=== PATIENT | male | born 1975 | race Caucasian/White ===

== ENCOUNTER 2025-05-17 08:15 | Outpatient (REF) | payer OTHER, SELFPAY ==
--- OUTSIDE RECORDS SUMMARY | 2014-02-28 05:15 | XMS_ITS | Continuity of Care Document ---
Author Organization [facility] Address [address] [place] [phone] Phone Care Team Providers Care Transfusion Aide Name Role Phone Jolly Nair MS Unavailable Unavail able Allergies, Adverse Reactions, Alerts Substance Reaction Status Criticality No Known Drug Allergies Active No I nformation Procedures Procedure Date Offic/outpt E&m [facility] 4 Advance Directives Directive Yes / No Effective Date File Name No Information Encounters Encounter Description Practice Location Reason(s) For Visit Diagnoses Date Provider Providers Copied on Encounter [facility], [address] [place] [address], [id number], tel:[phone] PM[facility] [place] suture removal (chief complaint) Benign Fadi Skin Trunk Apoorvasc MS CARRIE Azevedo. [address] [place] [address], [id number], . tel:[phone] [facility], [address] [place] [address], [id number], tel:[phone] PM[facility] [place] surgical (chief complaint) Unc Behav Fadi Skin Apoorvasc MS CARRIE Azevedo. [address] [place] [address], [id number], [place]. tel:[phone] Offic/outpt E&m [facility] [address] [place] [address], [id number], tel:[phone] PMG [place] skin exam (chief complaint)m ole(s) (chief complaint) Unc Behav Fadi SkinBenign Fadi Skin TrunkAc Dermatitis-s olar Rad Nicole Azevedo. [address] [facility], [place], [place], [id number], [place]. tel:[phone] Family History Family Member Type Diagnosis Age At Onset No Information Payers Payer name Insurance type Covered republican ID Billie cruz(s) [employer] Non HMO Specialty CI [id number] Social History Type Description Quantity Date Captured Comments Sex Male Smoking Status No Information Chief Complaint And Reason For Visit From encounter dated '02/28/2014 09:15'. suture removal (chief complaint) Reason For Referral Reason For Referral No Information History Of Present Illness Encounter Date Complaint History Of Prese nt Illness No Information Functional Status Date Functional Assessmen t No Information Instructions Date Instruction Additional Infor mation Use sunscreen with > 30 SPF Assessments Type Assessment Date No Information Mental Status Date Cognitive Assessment Orientation - [place] ed to time, place, person, situation. Patient Care Teams Name Effective Dates (start - stop) Status Members No Information
--- NOTE | 2025-05-17 | EMG_ITS ---
Please see the attached neurophysiology report MTDD
--- OUTSIDE RECORDS SUMMARY | 2025-05-17 08:21 | XMS_ITS | Encounter Summary ---
Author Organization [facility] Address [address] [place] [phone] Phone Care Team Providers Care Shot Polisher Name Role Phone Rashi Miner MD Primary Care Provid er Encounter Details Date Type Department Care Team (Late st Contact Info) Description 01/26/2025 Procedure Pass [facility], Ct Scan - [facility] [address] [place] [address] Social History Tobacco Use Types Packs/Day Years Used Date Smoking Tobacco: Never Smokeless Tobacco: Never Alcohol Use Standard Drinks/Week Comments Not Currently 0 (1 standard drink = 0.6 oz pur e alcohol) Occ Education Answer Date Recorded Are you interested in more education? Not on viri e 07/31/2023 Are you concerned about learning? Not on file 07/31/2023 No 07/31/2023 No 07/31/2023 Digital Access Answer Date Recorded No 07/31/2023 No 07/31/2023 Reliable internet access at home? Not on file 07/31/2023 Device with a working camera? Not on file Intimate Partner Violence Answer Date R ecorded Are you denied basic needs s uch as food, clothing, or medical care? No 01/26/2025 In the past 12 months have y ou been in a relationship with a person who hurts, threatens, or tries to control you? No 01/26/2025 Are you denied basic needs s uch as food, clothing, or medical care? No 01/26/2025 In the past 12 months have y ou been in a relationship with a person who hurts, threatens, or tries to control you? No 01/26/2025 Sex and Gender Information Value Date Recorded Sex Assigned at Male 01/26/2025 4:43 PM EDT Legal Sex Male 9:28 PM EDT Gender Identity Male 01/26/2025 4:43 PM EDT Sexual Orientation Choose not to disclose 2017 9:38 AM EST documented as of this encounter Functional Status * Calculated C-SSRS Risk Score (Lifetime/Recent) Answer Date of Assessment Author No Risk Indicated 01/26/2025 4:42 PM EDT Emilia Mahan RN * Wood Suicide Severity Rating Scale (Screener/Recent Self-Report) Question Answer Date of Assessment Author 1. Wish to be (Past 1 Month) No 01/26/2025 4:42 PM EDT Emilia Mahan RN 2. Non-Specific Active Suici salina Thoughts (Past 1 Month) No 01/26/2025 4:42 PM EDT Emilia Mahan, ABUNDIO 6. Suicidal Behavior (Lifetime) No 4:42 PM EDT Emilia Mahan, ABUNDIO documented as of this encounter Plan of Treatment Not on file documented as of this encounter Visit Diagnoses Not on filedocumented in this encounter Care Teams Shot Polisher Relationship Specialty Start Date End Date Rashi Miner MD [address] [phone] PCP - General Internal Medicine 08/24/17 documented as of this encounter Additional Source Comments The information contained in this document represents components of the legal health record. It is not the complete legal health record.[facility]
--- OUTSIDE RECORDS SUMMARY | 2025-05-17 08:22 | XMS_ITS | Data Portability ---
Author Organization [place] - .[facility], [facility] [place] Address [address] [place] [phone] Care Team Providers Care Web Site Administrator Name Role Phone LARA GAITAN Primary Care Provider Assessment No assessment recorded. Plan of Treatment Reminders Order Date Submit Date Provider Last Modified By Organization Details Last Modified Time Details Appointments None recorded. Lab herpes simplex, culture, unspecified specimen [address] Use Only - [facility] [place], [address], [place], [address], 2 06:50:29 STI panel [address] Use Only - [facility] [place], [address] [place], [address], 2 06:50:29 HIV (1+2) Ab screen, serum [address] Use Only - [facility] [place], [address] [place], [address], 2 06:50:29 CT + NG RNA, PCR, unspecified specimen [address] Use Only - [facility] [place], [address] [place], [address], 06:50:29 culture, wound - specimen source: penis 2021 022 [email or web address] [facility] Use Only - [facility] [place], [address], [place], [address], 06:50:29 Referral None recorded. Procedures None recorded. Surgeries None recorded. Imaging None recorded. Medication Orders methocarbam ol 750 mg tablet 2024 025 [facility]/Pharmacy #[id number], [address] [place] [address], [address], 5 18:21:06 ceftriaxone 500 mg solution for injection [email or web address]/Pharmacy #[id number], [address] [place] [address], [address], 5 18:02:24 doxycycline monohydrate 100 mg capsule [email or web address]/Pharmacy #[id number], [address] [place] [address], [address], 5 18:02:22 Patient TargetsNo targets recorded. Patient Instructions Encounter Date Encounter Id Patient Instructions Last Modified By Organization Details Last Modified Time 04/30/2022 [id number] A healthy lifestyle: care instructions Not available 05/02/2022 06:50:29 Thank you for visiting [facility]. There are two ways to view your lab results: : 1. The iMOSPHERE thomas is available to all patients 18 and older in the Thomas Store and Google Play. First-time thomas users will need to create an account; please note you ll need to select a login and password for the thomas versus just using your patient portal login credentials. Your lab results will be posted to the iMOSPHERE thomas as soon as they re available. 2. Via email , as soon as lab results are available. If you don t receive an email within the estimated time frame, give our Aftercare team a call at [phone]. [email or web address] Not available 04/30/2022 12:23:44 01/08/2025 [id number] A healthy lifestyle: care instructions [email or web address] Not available 01/08/2025 18:21:04 Thank you for visiting [facility]. We may be calling you to review your lab results or schedule a follow up appointment. The call will be through an automated system which asks you to press a dillon to speak with one of our agents. Please be on the lookout for this call and listen to the message in its entirety. You may also view your lab results using the iMOSPHERE thomas, available in the Thomas Store and Google Play. First-time thomas users will need to create an account; please note you ll need to select a login and password for the thomas versus just using your patient portal login. Your lab results will be posted to the iMOSPHERE thomas as soon as they re available. Need a note to excuse you from work or school? You can submit a request online at [email or web address] We will respond to your request within 2 business days If you have any questions regarding your visit, our Aftercare department can be reached at [phone]. Our hours are Friday from 8 am 11 pm or Friday/Friday from 9a 8p. Neck Strain You have strained the muscles and ligaments in your neck. A sudden, awkward movement can strain the neck. This often occurs with falls or car accidents or during certain sports. Everyday activities like working on a computer or sleeping can also cause neck strain if they force you to hold your neck in an awkward position for a long time. It is common for neck pain to get worse for a day or two after an injury, but it should start to feel better after that. You may have more pain and stiffness for several days before it gets better. This is expected. It may take a few weeks or longer for it to heal completely. Good home treatment can help you get better faster and avoid future neck problems. Follow-up care is a dillon part of your treatment and safety. Be sure to make and go to all appointments, and call your doctor if you are having problems. It's also a good idea to know your test results and keep a list of the medicines you take. How can you care for yourself at home? If you were given a neck brace (cervical collar) to limit neck motion, wear it as instructed for as many days as your doctor tells you to. Do not wear it longer than you were told to. Wearing a brace for too long can make neck stiffness worse and weaken the neck muscles. You can try using heat or ice to see if it helps. Try using a heating pad on a low or medium setting for 15 to 20 minutes every 2 to 3 hours. Try a warm shower in place of one session with the heating pad. You can also buy single-use heat wraps that last up to 8 hours. You can also try an ice pack for 10 to 15 minutes every 2 to 3 hours. Take pain medicines exactly as directed. If the doctor gave you a prescription medicine for pain, take it as prescribed. If you are not taking a prescription pain medicine, ask your doctor if you can take an hsnp-ajg-mrtpjoi medicine. Gently rub the area to relieve pain and help with blood flow. Do not massage the area if it hurts to do so. Do not do anything that makes the pain worse. Take it easy for a couple of days. You can do your usual activities if they do not hurt your neck or put it at risk for more stress or injury. Try sleeping on a special neck pillow. Place it under your neck, not under your head. Placing a tightly rolled-up towel under your neck while you sleep will also work. If you use a neck pillow or rolled towel, do not use your regular pillow at the same time. To prevent future neck pain, do exercises to stretch and strengthen your neck and back. Learn how to use good posture, safe lifting techniques, and proper body mechanics. When should you call for help? Call 911 anytime you think you may need emergency care. For example, call if: You are unable to move an arm or a leg at all. Call your doctor now or seek immediate medical care if: You have new or worse symptoms in your arms, legs, chest, belly, or buttocks. Symptoms may include: Numbness or tingling. Weakness. Pain. You lose bladder or bowel control. Watch closely for changes in your health, and be sure to contact your doctor if: You are not getting better as expected. Carpal Tunnel Syndrome Your Care Instructions: Carpal tunnel syndrome is a nerve problem. It can cause tingling, numbness, weakness, or pain in the fingers, thumb, and hand. The median nerve and several tough tissues called tendons run through a space in the wrist called the carpal tunnel. The repeated hand motions used in work and some hobbies and sports can put pressure on the nerve. and several conditions, including diabetes, arthritis, and an underactive thyroid, also can cause carpal tunnel syndrome. You may be able to limit an activity or do it differently to reduce your symptoms. You also can take other steps to feel better. If your symptoms are mild, 1 to 2 weeks of home treatment are likely to ease your pain. Surgery is needed only if other treatments do not work. Follow-up care is a dillon part of your treatment and safety. Be sure to make and go to all appointments, and call your doctor if you are having problems. It's also a good idea to know your test results and keep a list of the medicines you take. How can you care for yourself at home? If possible, stop or reduce the activity that causes your symptoms. If you cannot stop the activity, take frequent breaks to rest and stretch or change hand positions to do a task. Try switching hands, such as when using a computer mouse. Try to avoid bending or twisting your wrists. Ask your doctor if you can take an dxeh-cco-qmvvptp pain medicine, such as acetaminophen (Tylenol), ibuprofen (Advil, Motrin), or naproxen (Aleve). Be safe with medicines. Read and follow all instructions on the label. If your doctor prescribes corticosteroid medicine to help reduce pain and swelling, take it exactly as prescribed. Call your doctor if you think you are having a problem with your medicine. Put ice or a cold pack on your wrist for 10 to 20 minutes at a time to ease pain. Put a thin cloth between the ice and your skin. If your doctor or your physical or occupational therapist tells you to wear a wrist splint, wear it as directed to keep your wrist in a neutral position. This also eases pressure on your median nerve. Ask your doctor whether you should have physical or occupational therapy to learn how to do tasks differently. Try a yoga class to stretch your muscles and build strength in your hands and wrists. Yoga has been shown to ease carpal tunnel symptoms. To prevent carpal tunnel When working at a computer, keep your hands and wrists in line with your forearms. Hold your elbows close to your sides. Take a break every 10 to 15 minutes. Try these exercises: Warm up: Rotate your wrist up, down, and from side to side. Repeat this 4 times. Stretch your fingers far apart, relax them, then stretch them again. Repeat 4 times. Stretch your thumb by pulling it back gently, holding it, and then releasing it. Repeat 4 times. Prayer stretch: Start with your palms together in front of your chest just below your chin. Slowly lower your hands toward your waistline while keeping your hands close to your stomach and your palms together until you feel a mild to moderate stretch under your forearms. Hold for 10 to 20 seconds. Repeat 4 times. Wrist flexor stretch: Hold your arm in front of you with your palm up. Bend your wrist, pointing your hand toward the floor. With your other hand, gently bend your wrist further until you feel a mild to moderate stretch in your forearm. Hold for 10 to 20 seconds. Repeat 4 times. Wrist extensor stretch: Repeat the steps for the wrist flexor stretch, but begin with your extended hand palm down. Squeeze a rubber exercise ball several times a day to keep your hands and fingers strong. Avoid holding objects (such as a book) in one position for a long time. When possible, use your whole hand to grasp an object. Using just the thumb and index finger can put stress on the wrist. Do not smoke. It can make this condition worse by reducing blood flow to the median nerve. If you need help quitting, talk to your doctor about stop-smoking programs and medicines. These can increase your chances of quitting for good. When should you call for help? Watch closely for changes in your health, and be sure to contact your doctor if: Your pain or other problems do not get better with home care. You want more information about physical or occupational therapy. You have side effects of your corticosteroid medicine, such as: Weight gain. Mood changes. Trouble sleeping. Bruising easily. You have any other problems with your medicine. [email or web address] Not available 01/11/2025 10:56:16 Reason for Referral None Reported. Results Created Date Observation Date Name Description Value Unit Range Abnormal Flag Note LastModifiedBy Organization Detail LastModifiedTime 07/05/05/01/2022 HIV 1/2 ANTIG EN/AN TIBOD Y,FOU RTH GENER ATION W/RFL HIV Ag/Ab, 4TH gen NON-RE ACTIVE non-re active normal HIV-1 antig en and HIV-1 /HIV- 2 antib odies were not detec jillian. There is no labor atory evide nce of HIV infec tion. PLEAS E NOTE: This infor matio n has been discl osed to you from recor ds whose confi denti ality may be prote cted by state law. If your state requi res such prote ction , then the state law prohi bits you from elaine mirza any furth er discl osure of the infor matio n witho ut the speci fic writt en conse nt of the perso n to whom it perta ins, or as other winters permi tted by law. A gener al autho rizat ion for the relea se of medic al or other infor matio n is NOT suffi cient for this purpo se. For addit ional infor matio n pleas e refer to http: //[facility] catromana n.que stdia gnost ics.c om/fa q/FAQ 106 (This link is being provi ded for infor matio nal/ educa vania l purpo ses only. ) The perfo rmanc e of this assay has not been clini shade valid ated in patie nts less than 2 years old. Not Available [facility] [place], [address], 05/01/2022 06:38:34 04/30/20 22 05/01/2022 SYPHI LIS ANTIB SEDA CASCA DING REFLE X T. pallidum Ab Not Available [facility] [place] [facility] [place], [address], 05/01/2022 05:49:42 04/30/20 22 05/01/2022 HEPAT ITIS B SURFA CE ANTIG EN W/REF L CONFI RM hepatitis B surface antigen NON-RE ACTIVE non-re active normal Not Available [facility] [place], [address], 05/01/2022 05:49:43 04/30/20 22 05/01/2022 HEPAT ITIS C AB W/REF L TO HCV RNA, QN, PCR hepatitis C antibody NON-RE ACTIVE non-re active normal Not Available [facility] [address] [place], [address], 05/01/2022 06:38:36 04/30/20 22 05/01/2022 HEPAT ITIS C AB W/REF L TO HCV RNA, QN, PCR index 0.07 <1.00 normal HCV antib seda was non-r eacti ve. There is no labor atory evide nce of HCV infec tion. In most cases , no furth er actio n is requi red. Howev er, if recen t HCV expos ure is suspe cted, a test for HCV RNA (test code 25174 ) is sugge sted. For addit ional infor vicente verdin e refer to http: //[facility] [place] white.asa stdia gnost ics.c om/fa q/FAQ 22v1 (This link is being provi ded for infor matromana nal/ educa vania l purpo ses only. ) Not Available [facility] [address] [place], [address], 05/01/2022 06:38:36 04/30/20 22 05/01/2022 CHLAM YDIA/ N. GONOR RHOEA E RNA, TMA, UROGE NITAL chlamydia trachomatis RNA, tma, urogenital NOT DETECT ED not detect ed normal Not Available [facility] [address] [place], [address], 05/01/2022 14:09:46 04/30/20 22 05/01/2022 CHLAM YDIA/ N. GONOR RHOEA E RNA, TMA, UROGE NITAL neisseria gonorrhoeae RNA, tma, urogenital NOT DETECT ED not detect ed normal Not Available [facility] - [address] [place], [address], 05/01/2022 14:09:46 04/30/20 22 05/01/2022 CHLAM YDIA/ N. GONOR RHOEA E RNA, TMA, UROGE NITAL comment The pia tical perfo rmanc e manolo cteri stics of this assay , when used to test SureP ath(T M) speci mens have been deter mined by [facility]. The modif icati ons have not been clear ed or appro donald by the FDA. This assay has been valid ated pursu ant to the CLIA regul ation s and is used for clini [place] purpo ses. For addit ional infor velvet weinberg e refer to https ://ed ucati on.qu estUni-Pixel. com/f aq/FA Q154 (This link is being provi ded for infor vicente white/ educa vania l purpo ses only. ) Not Available [facility] [place] [employer] [address] [place], [address], 05/01/2022 14:09:46 04/30/20 22 05/01/2022 TRICH OMONA S VAGIN ANDREAS RNA QL, TMA, UNISE X trichomonas vaginalis RNA ql, tma, unisex NOT DETECT ED not detect ed normal Metho dolog y: Trans cript ion Media jillian Ampli ficat ion (TMA) The pia tical perfo rmanc e manolo cteri stics of this assay have been deter mined by [facility]. The modif icati ons have not been clear ed or appro donald by the FDA. This assay has been valid ated pursu ant to the CLIA regul ation s and is used for clini [place] purpo ses. For addit ional infor velvet weinberg e refer to http: //[facility] [place] white.que stdia gnost ics.c om/fa q/Tri chomo nastm a (This link is being provi ded for infor matromana nal/ educa vania l purpo ses only. ) Not Available [facility] [address] [place], [address], 05/01/2022 14:19:54 04/30/20 22 05/01/2022 HERPE S SIMPL EX VIRUS CULTU RE W/RFL TO TYPIN G hsv culture SEE NOTE Not Available [facility] [address] [place], [address], 05/01/2022 05:49:46 04/30/20 22 05/03/2022 CULTU RE, AEROB IC BACTE PIERRE culture, aerobic bacteria SEE NOTE abnormal CULTU RE, AEROB IC BACTE PIERRE Micro Numbe r: [id number] Test Statu s: Final Speci men Sourc e: Penis Speci men Quali ty: Adequ ate Resul t: Moder ate growt h of Group A Strep tococ cus isola jillian Beta- hemol ytic strep tococ ci are predi ctabl y susce ptibl e to Penic illin and other beta- lacta ms. Susce ptibi lity testi ng not routi j luis perfo rmed. Pleas e conta ct the labor atory withi n 3 days if susce ptibi lity testi ng is kerline ed. COMME NT: Skin tarsha also prese nt. Not Available [facility] [address] [place], [address], 05/03/2022 16:00:39 04/30/20 22 05/02/2022 HERPE S SIMPL EX VIRUS CULTU RE W/RFL TO TYPIN G herpes simplex virus culture w/rfl to typing SEE NOTE HERPE S SIMPL EX VIRUS CULTU RE W/RFL TO TYPIN G Micro Numbe r: [id number] Test Statu s: Final Speci men Sourc e: Not given Speci men Quali ty: Adequ ate HSV Cultu re: Not [place] jillian Not Available [facility] [address] [place], [address], 05/02/2022 10:23:46 04/30/20 22 05/04/2022 SYPHI LIS ANTIB SEDA CASCA DING REFLE X T. pallidum Ab POSITI VE negati ve abnormal Antib odies to T. palli dum (the agent causi ng syphi lis) were detec jillian in the speci men, stron gly sugge sting recen t or past T. palli dum infec tion. Testi ng there - fore progr essed to the non-t repon emal RPR assay . Not Available [facility] [address] [place], [address], 05/04/2022 09:13:02 04/30/20 22 05/04/2022 SYPHI LIS ANTIB SEDA CASCA DING REFLE X RPR screen NON-RE ACTIVE non-re active This resul t may indic ate that the detec tion of T. palli dum antib seda repre sents a previ ously treat ed case of syphi lis, or was false ly posit jeison. Alter nativ lesvia, the RPR resul t may be false ly negat jeison, as has been docum ented in some cases of prima ry syphi lis and late laten t syphi lis. Testi ng there fore progr essed to the T. palli dum Parti zuri Agglu tinat ion assay . Not Available [facility] [address] [place], [address], 05/04/2022 09:13:02 04/30/20 22 05/04/2022 SYPHI LIS ANTIB SEDA CASCA DING REFLE X treponema pallidum Ab, particle agglutinatio n REACTI VE nonrea ctive abnormal This resul t confi lauro the detec tion of T. palli dum antib seda by immun oassa y. The combi steve resul t set (T. palli dum antib seda (immu noass ay) equiv ocal or posit jeison RPR nonre activ e, TP-PA react jeison) sugge sts treat ed syphi lis, prima ry syphi lis, or late laten t syphi lis. Not Available [facility] [facility] [place], [address], 05/04/2022 09:13:02 Result Notes None recorded. Problems Name Problem SNOMED Code Status Onset Date Resolution Date Notes Provider Name and Address Organization Details Recorded Time Depressive disorder 65140004 Active 022 JUSTYNA Guzman - .[facility] 12:29:21 Problem Notes None recorded. Procedures Surgical History Date Name Laterality Status Provider Name and Address Organization Details Recorded Time 01/09/20 25 . Ortho - LEFT Upper Extremity completed Carlo BUTLER [address] [place] [address],[address], [place], [address], [facility] - .[facility] 01/08/2025 18:21:20 04/30/20 22 . Venipuncture completed Verenice JANSEN - .[facility] 04/30/2022 12:32:56 Imaging Results None recorded. Procedure Notes None recorded. Medical Equipment None Reported. Allergies No known drug allergies Medications Name Sig Start Date Stop Date Status Note LastModified by Organization Details LastModified Time amoxicill in 875 mg tablet Take 1 tablet twice a day by oral route as directed for 10 days. active Not Available Not Available No t Available methocarb annie 750 mg tablet As directed by oral route, take 2 tablets first dose, then 1 tablet every 6 hours as needed 2024 active Not Available Not Available Not Avai lable doxycycli ne monohydra te 100 mg capsule Take 1 capsule twice a day by oral route for 7 days. 01/08 completed Not Available Not Available Not Available ceftriaxo ne 500 mg solution for injection Administ er x 1 dose IM. 01/08 completed Provider administ ered injectio n Not Available Not Available Not Available cefdinir 300 mg capsule Take 1 capsule twice a day by oral route for 7 days. 01/08 completed Not Available Not Available Not Available Wellbutri n SR active Not Available Not Available Not Available Abilify active Not Available Not Avail able Not Available Truvada active Not Available Not Avail able Not Available Vitals Date Recorded Body height Body mass index (BMI) Body weight Respiratory rate Heart rate Body temperature Oxygen saturation Oxygen saturation in Arterial blood by Pulse oximetry Systolic And Diastolic Provider Name and Address Organization Details Last Updated DateTime 180.34 cm 25.8 kg/m2 12658.5 9 g 16 /min 98 /min 97.9 [degF] 97 % 97 % 128/81 mm[Hg] Rocio JANSEN - .[facility] 5 18:02:45 Date Recorded Body height Body mass index (BMI) Body weight Heart rate Body temperature Respiratory rate Oxygen saturation Oxygen saturation in Arterial blood by Pulse oximetry Systolic And Diastolic Provider Name and Address Organization Details Last Updated DateTime 2 180.34 cm 25.8 kg/m2 02447.5 9 g 86 /min 98.3 [degF] 16 /min 99 % 99 % 108/72 mm[Hg] Priti JANSEN - .[facility] 2 12:28:16 Social History Question Answer Notes LastModified by Organizat ion Details LastModified Time RISK LEVEL - Segmentation Level 1 - Healthy [id number] Information not available 05/28/2022 Sex: Unknown Functional Status None recorded. Mental Status None recorded. Family History Nothing Reported. Medical History No medical history recorded. Past Encounters Encounter ID Performer Location Encounter Start Date Encounter Closed Date Diagnosis/Indication Diagnosis SNOMED-CT Code Diagnosis ICD10 Code Diagnosis Note [id number] CARRIE KULKARNI [facility] [place] [phone] [place] [phone] 04/30/2022 12:16:28 04/30/2022 13:00:00 Venereal disease screening 966953155 Z11.3 [id number] Princess Tariq MCINTOSH [facility] [phone] [place] [phone] 01/08/2025 17:37:39 01/08/2025 18:21:42 Carpal tunnel syndrome 70584680 G56.02 Strain of neck muscle 36 1770762 S16.1XXA Health Concerns Section Related Observation LastModified by Organization Detai ls LastModified Time None Recorded Concern Status LastModified by Organization Details LastModified Time None Recorded Advance Directives Directive None Recorded Payers Insurance Date Sequence Insurance Name Policy Number Policy San Covered Member ID San Member ID Guarantor Name 04/04/2025 1 [facility] [id number] Tristan Jones [id number] Tristan Jones 04/03/2025 1 [facility] Tristan Jones [id number] Tristan Jones Notes Date Note Type Note Provider Name and Address Organization Details Recorded Time 04/30/2022 text/html Genital Lesion - cmdReported bypatient.Patient presents with:Genital lesion which began 2-3 days ago Pertinent findings:No fever; No chills; No dysuria; No hematuria; No back pain; No abdominal pain; No genital discharge; No malodorous discharge; No genital pain; No nausea; No vomiting; No recent potential STD exposure; No history of similar symptoms in the pastNotes:pt presents with genital sore along the shaft of his penis. pt states that he has had unprotected sex within the last few weeks.STD Testing/Counseling /Questionnaire - cmdReported bypatient.Timing:N O symptoms: Asymptomatic Testing Recent EXPOSURE to STD?NO recent STD exposure Symptoms:NO nausea; NO vomiting; NO dysuria; NO back pain; NO fever; NO abdominal pain; NO genital discharge;(+) Genital Lesions Recent TESTING for STD?NO recent STD testing Sexual Partner Hxsexually active with MALES HSV HistoryNO Hx of Cold Sores; NO Hx of Genital Herpes; NO Hx of Antibody to HSV 1 or 2 STD History(+) Hx of Syphilis JUSTYNA Orta - .[facility] 04/30/2022 15:59:27 01/08/2025 text/html Neck Complaint - cmdReported bypatient.Patient presents with:left Neck complaint which began 4-6 days ago Pertinent findings:No chest pain; No shortness of breath; No extremity weakness; No bowel/bladder incontinence; No confusion; No loss of consciousness; No abdominal pain; No flank pain; No hematuriaNotes:49 y/o M c/o LT sided neck pain that began 4-5days ago, pt reports he may have slept on it wrong. Notes feeling tingling sensation and numbness of his LT hand and wrist this morning.Denies CP, SOB, dizziness, weakness, palpitations, headaches, shoulder/upper arm paresthesias.OTC-n one Carlo BUTLER [address] [place] [address],[address], [place], [id number], [facility] - .[facility] 01/11/2025 10:57:40
== END 2025-05-17 08:16 | disposition home or self-care (01) ==
LOC: HO.NEURO 08:15
PROVIDERS: PCP Internal Medicine; Visit Provider Internal Medicine
DX: G56.22 Lesion of ulnar nerve, left upper limb (principal)
CPT/HCPCS: 95886; 95910

== ENCOUNTER → 2025-05-17 08:21 | Outpatient (BNV) | payer OTHER, SELFPAY | PROVIDERS: PCP Internal Medicine; Visit Provider Psychiatry & Neurology Neurology | DX: G56.22 Lesion of ulnar nerve, left upper limb (principal) | CPT/HCPCS: 95886; 95910 ==